=== PATIENT | male | born 1950 | race Caucasian/White ===

== ENCOUNTER 2017-01-06 11:12 | Emergency (ER) | payer MEDICARE ==
[2017-01-06 12:16] LABS: BASOPHILS 0.2 %; BASOPHILS ABSOLUTE 0.02 10/3/uL (0.0-0.16); EOSINOPHILS 0.2 %; EOSINOPHILS ABSOLUTE 0.03 10/3/uL (0.0-0.53); HEMATOCRIT 42.4 % (40.0-51.0); HEMOGLOBIN 14.5 g/dL (13.6-17.8); IMMATURE GRANULOCYTES 0.4 %; IMMATURE GRANULOCYTES ABSOLUTE 0.05 10/3/uL (0.0-0.11); LYMPHOCYTES 7.2 %; LYMPHOCYTES ABSOLUTE 0.92 10/3/uL (0.67-4.30); MEAN CORPUS HGB CONC 34.2 g/dL (32.0-36.0); MEAN CORPUSCULAR HEMOGLOB 30.4 pg (26.0-34.0); MEAN CORPUSCULAR VOLUME 88.9 fL (80-100); MEAN PLATELET VOLUME 9.7 fL (9.2-13.0); MONOCYTES 4.2 %; MONOCYTES ABSOLUTE 0.54 10/3/uL (0.21-1.20); NEUTROPHILS 87.8 %; PLATELET COUNT 209 10/3/uL (150-400); RBC DISTRIBUTION WIDTH 12.8 % (12.0-16.0); RED CELL COUNT 4.77 10/6/uL (4.7-6.1); WHITE BLOOD CELLS 12.9 10/3/uL (4.5-10.5)
[2017-01-06 12:17] LABS: MANUAL DIFF NO %
[2017-01-06 12:32] LABS: A/G RATIO 0.8 (0.7-1.9); ALBUMIN 3.1 G/DL (3.5-5.0); ALKALINE PHOSPHATASE 95 U/L (45-117); BUN (BLOOD UREA NITROGEN) 10 MG/DL (6-23); CALCIUM, SERUM 8.4 MG/DL (8.5-10.4); CHLORIDE, SERUM 103 MMOL/L (96-112); CO2 (CARBON DIOXIDE) 29 MMOL/L (24-34); CREATININE 0.87 MG/DL (0.70-1.30); GFR AFRICAN AMERICAN 105 ML/MIN (>=60); GFR NON AFRICAN AMERICAN 91 ML/MIN (>=60); GLUCOSE, SERUM 134 MG/DL (60-99); POTASSIUM, SERUM 3.9 MMOL/L (3.5-5.3); SGOT(AST) 14 U/L (5-40); SGPT(ALT) 28 U/L (5-65); SODIUM, SERUM 140 MMOL/L (135-148); TOTAL BILIRUBIN 0.4 MG/DL (0-1.2); TOTAL PROTEIN 7.1 G/DL (6.0-8.5)
[2017-05-07] MEDS ORDERED: VIST25 PO (18:08)
[2017-05-07] MEDS ORDERED: PAX20 PO (18:08)
[2017-05-07] MEDS ORDERED: COL RITE PO (18:10)
[2017-05-07] MEDS ORDERED: L40 PO (18:10)
[2017-05-07] MEDS ORDERED: ZOFRAN4 PO (18:11)
[2017-05-07] MEDS ORDERED: NORCO1 TAB PO (18:11)
[2017-05-07] MEDS ORDERED: NEXIUM40 PO (18:12)
[2017-05-07] MEDS ORDERED: ZOCOR40 PO (18:12)
[2017-05-07] MEDS ORDERED: FLOMAX4 PO (18:12)
[2017-05-07] MEDS ORDERED: MIRALAX POWDER1 PKT PO (18:13)
[2017-05-07] MEDS ORDERED: HALF81 PO (18:13)
[2017-05-07] MEDS ORDERED: SYMBICORT 160/41 INH INH (18:13)
[2017-05-07] MEDS ORDERED: ZESTRIL40 MG PO (18:13)
[2017-05-07] MEDS ORDERED: KLOR-CON M2020 MEQ PO (18:14)
== END 2017-01-06 15:12 | disposition home or self-care (01) ==
LOC: ER 11:12
PROVIDERS: Emergency Medicine
DX: R10.9 Unspecified abdominal pain (principal); I10 Essential (primary) hypertension; Z88.0 Allergy status to penicillin; Z88.5 Allergy status to narcotic agent
CPT/HCPCS: 74176; 80053; 81001; 83690; 85025; 96374; 99284; J1170; J2405